=== PATIENT | male | born 1975 | race Caucasian/White ===

== ENCOUNTER 2020-12-21 23:55 | Emergency (ER) | payer SELFPAY ==
[~2020-12-21] VITALS: Ht 182.9 cm; Wt 79.5 kg
[2020-12-22 00:03] VITALS: BP 121/84
[2020-12-22] MEDS ORDERED: IPRATRPIUM/ALBUTEROL 0.5/2.5MG 3 ML NEBU. NEB ONE (00:15)
--- NOTE | 2020-12-22 00:17 | PHYS DOC ---
Adult General HPI HPI Patient is a 45-year-old male who presents with 4 to 6 weeks of cough. States he has had a small amount of mucus occasionally with a cough. States he smokes 1 to 2 packs of cigarettes a day and has been for the last 15 years. Denies any recent travel, illnesses, fevers, chest pain, shortness of breath, abdominal p ain, nausea, vomiting, dysuria, hematuria, diarrhea or blood in the stool. States he had a Covid test in July that was negative. Review of Systems Review of Systems Review of systems otherwise unremarkable except noted in HPI Physical Exam Physical Exam Constitutional: Well developed, well nourished, no acute distress, non-toxic appearance. [] HENT: Normocephalic, atraumatic, bilateral external ears normal, oropharynx moist, no oral exudates, nose normal. [] Eyes: conjunctiva normal, no discharge. [] Neck: Normal range of motion, no tenderness, supple, no stridor. [] Cardiovascular:Heart rate regular rhythm, no murmur [] Lungs & Thorax: Mild bilateral global rhonchi Abdomen: soft, no tenderness, no masses, no pulsatile masses. [] Skin: Warm, dry, no erythema, no rash. [] Neurologic: Alert and oriented X 3, Psychologic: Affect normal, judgement normal, mood normal. [] EKG EKG [] Radiology/Procedures Radiology/Procedures Chest x-ray with no obvious consolidation, or pneumothorax. Cardiac silhouette normal. No pleural effusion. [] Heart Score C/O Chest Pain: No Risk Factors: Risk Factors: DM, Current or recent (<one month) smoker, HTN, HLP, family history of CAD, obesity. Risk Scores: Risk Factors: DM, Current or recent (<one month) smoker, HTN, HLP, family history of CAD, obesity. Course & Med Decision Making Course & Med Decision Making Patient is a 45-year-old male who presents with 4 to 6 weeks of cough Vital signs not concerning. Physical exam noted above. Given patient's history and physical, etiology suggestive of COPD Given breathing treatment, steroids and started on doxycycline. Discussed need for smoking cessation. Chest x-ray not concerning. Discussed all findings with patient. Advised follow-up with primary care soon as he can to discuss need for further evaluation and treatment for probable COPD. Patient grateful, verbalized understanding and agreed with plan of discharge. [] Dragon Disclaimer Dragon Disclaimer This electronic medical record was generated, in whole or in part, using a voice recognition dictation system. Departure Departure: Impression: Primary Impression: COPD with acute bronchitis Disposition: HOME / SELF CARE / HOMELESS Condition: GOOD Referrals: PCP,NO (PCP) Patient Instructions: Chronic Obstructive Pulmonary Disease, Chronic Obstructive Pulmonary Disease Exacerbation Additional Instructions: Please read all of the attached information carefully to understand COPD. Please quit smoking as soon as possible. You can use nicotine patches, gum or combination to help you achieve this as discussed. Please follow-up with your primary care physician as soon as you can to set up a follow-up appointment to discuss your ED visit and further evaluation and treatment for COPD. Please come back to the ED immediately with new or concerning symptoms. Scripts Doxycycline Hyclate (DOXYCYCLINE HYCLATE) 100 Mg Tablet 1 TAB PO BID for COPD/bronchitis, #13 TAB Prov: GERARDO MATTHEWS MD 12/22/20 GERARDO MATTHEWS MD Dec 22, 2020 00:17
[2020-12-22] MEDS ORDERED: DOXY100T PO (00:18)
--- NOTE | 2020-12-22 00:40 | RAD ---
Study: XR CHEST 1V Indication: Cough. Comparison: None. Findings: The cardiomediastinal silhouette and dionicio are within normal limits. No focal airspace opacity, pleura l effusion or pneumothorax. Impression: No acute radiographic abnormality of the chest. Electronically signed by: VALERIE PEDRAZA MD (12/22/2020 12:37 AM) [facility]
[2020-12-22] MEDS ORDERED: DOXYCYCLINE HYCLATE 100 MG TABLET PO ONE (01:00)
[2020-12-22] MEDS ORDERED: DEXAMETHASONE 4 MG TABLET PO ONE (01:00)
[2020-12-22] MEDS ORDERED: guaiFENesin DM 200MG/20MG 10 ML SYRUP PO ONE (01:00)
== END 2020-12-22 00:37 | disposition home or self-care (01) ==
LOC: ER 23:55
DX: J20.9 Acute bronchitis, unspecified (principal); J44.0 Chronic obstructive pulmonary disease with (acute) lower respiratory infection; F17.210 Nicotine dependence, cigarettes, uncomplicated
CPT/HCPCS: 71045; 94640; 99284; J8540